=== PATIENT | male | born 1960 | race Caucasian/White ===

== ENCOUNTER 2016-08-08 22:51 | Emergency (ER) | payer BC ==
[~2016-08-08] VITALS: Ht 162.6 cm; Wt 71.0 kg
[~2016-08-08 22:51] MED LIST: CONCERTA54 MG PO; DAILY VITAMIN1 EAC8 PO; KLONOPIN0.5 M1 PO; LISINOPRIL5 MG PO; RITALIN10 MG PO; VITAMIN D
[2016-08-09 01:21] LABS: HEMATOCRIT 41.1 % (38.0-50.0); MCH 29.4 PG (29.0-34.0); MCHC 34.1 G/DL (30.0-36.0); MCV 86.3 FL (86-99); MEAN PLAT.VOLUME 10.2 uM^3 (9.0-12.4); PLATELET COUNT 154 K/uL (156-360); RBC DIS.WIDTH-CV 12.2 % (11.8-14.6); RBC DIS.WIDTH-SD 38.7 % (39-53); RED BLOOD COUNT 4.76 M/uL (4.00-5.50); WHITE BLOOD COUNT 3.8 K/uL (4.1-10.2)
[2016-08-09 01:33] LABS: CHLORIDE 101 mEq/L (99-109); POTASSIUM 4.1 mEq/L (3.7-5.4); SODIUM 136 mEq/L (136-147)
[2016-08-09 01:34] LABS: GLUCOSE 112 mg/dL (70-99)
[2016-08-09] MEDS ORDERED: VIBRAMYCIN100 MG PO (01:34)
[2016-08-09 01:36] LABS: ANION GAP 13 MEQ/L (2-14)
[2016-08-09 01:38] LABS: GFR ESTIMATE (CALCULATED) > 59 mL/min/
[2016-08-09 01:39] LABS: UREA NITROGEN (BUN) 28 mg/dL (9-23)
[2016-08-09 02:05] VITALS: BP 122/69
== END 2016-08-09 02:11 | disposition home or self-care (01) ==
LOC: RME 22:51 → EME 22:51 → RME 08-09 02:11
PROVIDERS: Physician Assistant Medical
DX: S31.105A Unspecified open wound of abdominal wall, periumbilic region without penetration into peritoneal cavity, initial encounter (principal); C19 Malignant neoplasm of rectosigmoid junction; I10 Essential (primary) hypertension; Z91.041 Radiographic dye allergy status
CPT/HCPCS: 74176; 80048; 85027; 99281; 99284